=== PATIENT | female | born 1950 | race Caucasian/White ===

== ENCOUNTER 2019-07-03 17:45 | Inpatient (IN) ==
[2019-07-03] MEDS ORDERED: NORVASC PO ONE (19:23)
[2019-07-03] MEDS ORDERED: APRESOLINE IV PRN (19:25)
[2019-07-03] MEDS ORDERED: ZOFRAN IV PRN (19:26)
[2019-07-03] MEDS ORDERED: DESYREL PO PRN (19:26)
[2019-07-03 19:32] LABS: BASO# 0.02 X1000 (0.0-0.2); BASO% 0.2 % (0.0-0.8); EOS# 0.21 X1000 (0.0-0.7); EOS% 1.8 % (0.0-10.0); HEMATOCRIT 50.6 % (37.0-47.0); IMM GRAN# 0.07 X1000 (0.0-0.04); IMM GRAN% 0.6 % (0.0-0.5); LYMPH# 2.07 X1000 (1.2-3.4); LYMPH% 17.3 % (20.5-51.1); MCH 30.5 PG (27-31); MCHC 33.6 g/dL (33-37); MCV 90.7 FL (81-99); MONO# 0.77 X1000 (0.11-0.59); MONO% 6.4 % (1.7-9.3); MPV 9.9 FL (7.4-10.4); NEUT# 8.81 X1000 (1.4-6.5); NEUT% 73.7 % (42.2-75.2); PLT 167 X1000 (130-400); RBC 5.58 XMIL (4.2-5.4); RDW 13.5 % (11.5-14.5); WBC 11.95 X1000 (4.8-10.8)
[2019-07-03] MEDS: TYLENOL PO PRN (19:38)
[2019-07-03] MEDS: SOLU-MEDROL IV SCH (19:39)
[2019-07-03] MEDS: ROCEPHIN 1 GM in NS 50 ML IV SCH (19:39)
[2019-07-03 20:02] LABS: ALB/GLOB RATIO 1.1; ALBUMIN 3.7 g/dL (3.5-5.0); CREATININE 1.1 mg/dL (0.5-0.9); TOTAL BILIRUBIN 0.41 mg/dL (0.20-1.00); TOTAL PROTEIN 7.1 g/dL (6.3-8.3)
--- NOTE | 2019-07-03 20:20 | HISTORY AND PHYSICAL ---
DATE: 07/03/2019 CHIEF COMPLAINT: Shortness of breath. HISTORY OF PRESENT ILLNESS: This is a 68-year-old female with history of chronic obstructive pulmonary disease. She has been dealing with her COPD issues off and on for the last couple of months and not really been ever improved, per se. She most recently reports having 2 rounds of steroids. She has had 1 round of doxycycline and 1 round of Levaquin and an unknown, and has not improved. She has not finished her round of Levaquin. She was seen today in outpatient Urgent Care Clinic at [facility] by the nurse practitioner who felt that she was failing outpatient therapy and needed to be admitted directly. She does report some cough, occasional hemoptysis, no fevers, chills. PAST MEDICAL HISTORY: 1. COPD. 2. Hypertension. 3. Obstructive sleep apnea. PAST SURGICAL HISTORY: 1. She has had a partial hysterectomy. 2. She has had colon resection for diverticulosis. 3. She has had a cholecystectomy. ALLERGIES: No known drug allergies. SOCIAL HISTORY: Tobacco: She smokes about a pack to a pack and a half a day. She at least most likely has a 40 pack year history of smoking. It has kind of gotten worse since her in February. No alcohol. FAMILY HISTORY: Positive for diabetes and CAD. REVIEW OF SYSTEMS: No weight loss, appetite change. Positive pleuritic chest pain. The patient has no major complaints. Review of systems otherwise negative on a 10 point review of systems. PHYSICAL EXAMINATION: Vital signs: Blood pressure is 185/85, heart rate 75, respiratory rate 16, temperature 97.8 degrees. General: Well developed female in no acute distress, although she definitely does not feel well. Eyes: Pupils are equal, round, and reactive to light. Extraocular movements are intact. Ears, nose, throat: She has moist mucous membranes. Neck: Supple. Cardiovascular: Regular rate and rhythm. Pulmonary: She had diffuse rhonchi, occasional wheezing, and decreased air movement throughout. GI: Soft, nontender, and nondistended. Bowel sounds are positive. Neurological: Exam was nonfocal. Cranial nerves 2 through 12 were grossly intact. GI: Soft, nontender, nondistended. Bowel sounds were positive. Musculoskeletal: 4 out of 5 in all 4 extremities. LABORATORY DATA: I do not have any data today. X-rays were not sent with her. ASSESSMENT: This is a 68-year-old female with chronic obstructive pulmonary disease that has been refractory to outpatient treatments, admitted for persistent chronic obstructive pulmonary disease exacerbation. 1. Chronic obstructive pulmonary disease exacerbation. We will continue treatments. She does not seem particularly wheezy to me and she is not hypoxic. We may also have to entertain that this may be different. This may not be just bronchospasm. Perhaps she has another etiology. It could be cardiac, but I will treat her spasms with some steroids and breathing treatments, initiate some antibiotics, and follow closely. 2. Hypertension. She has uncontrolled hypertension. I have initiated Norvasc. She is on some medications, bisoprolol and Cozaar. They have not been confirmed. 3. Obstructive sleep apnea. She apparently does not use BiPAP, so we will continue to follow. 4. We will also do gastrointestinal and deep venous thrombosis prophylaxis. cc: MD Dr. Ilsa Hutton
[2019-07-03] MEDS: DUONEB (A & A) INH SCH (22:24)
--- NOTE | 2019-07-03 22:46 | EKG Report ---
Test Performed on : 07/03/2019 10:34:00 PM Test Reason : dyspnea Blood Pressure : / mmHG Vent. Rate : 070 BPM Atrial Rate : 070 BPM P-R Int : 176 ms QRS Dur : 082 ms QT Int : 424 ms P-R-T Axes : 057 -36 072 degrees QTc Int : 457 ms Normal sinus rhythm. Possible Left atrial enlargement Left axis deviation Abnormal ECG Confirmed by Surinder Cardoso MD ([id number]) on 07/07/2019 9:33:39 PM
[2019-07-04] MEDS: TYLENOL PO PRN ×2 (02:29→08:01)
[2019-07-04 02:48] LABS: URINE SOURCE CLEAN CATCH
[2019-07-04 03:05] LABS: BILIRUBIN URINE NEGATIVE (NEGATIVE); BLOOD URINE NEGATIVE (NEGATIVE); COLOR YELLOW; GLUCOSE URINE NEGATIVE (NEGATIVE); KETONE URINE NEGATIVE (NEGATIVE); LEUKOCYTES URINE NEGATIVE (NEGATIVE); NITRITE URINE NEGATIVE (NEGATIVE); PROTEIN URINE NEGATIVE (NEGATIVE); SP GRAVITY URINE 1.014; TURBIDITY URINE CLEAR (CLEAR); UROBILINOGEN URINE NORMAL (NORMAL)
[2019-07-04 03:07] LABS: UR EPITHELIAL CELLS <10 /HPF (<10); URINE BACTERIA NEGATIVE /HPF; URINE RBC <10 /HPF (<10); URINE WBC <10 /HPF (<10)
[2019-07-04] MEDS: DUONEB (A & A) INH SCH ×4 (03:33→22:33)
[2019-07-04] MEDS: NITROGLYCERIN SL PRN ×3 (04:52→12:00)
[2019-07-04] MEDS: LOVENOX SUBQ SCH (05:00)
[2019-07-04 06:26] LABS: BASO# 0.01 X1000 (0.0-0.2); BASO% 0.1 % (0.0-0.8); HEMATOCRIT 49.1 % (37.0-47.0); HEMOGLOBIN 16.4 g/dL (12.0-16.0); IMM GRAN# 0.03 X1000 (0.0-0.04); IMM GRAN% 0.3 % (0.0-0.5); LYMPH% 5.1 % (20.5-51.1); MCH 30.4 PG (27-31); MCHC 33.4 g/dL (33-37); MCV 90.9 FL (81-99); MONO# 0.08 X1000 (0.11-0.59); MONO% 0.8 % (1.7-9.3); MPV 9.6 FL (7.4-10.4); NEUT# 9.09 X1000 (1.4-6.5); NEUT% 93.7 % (42.2-75.2); PLT 163 X1000 (130-400); RDW 13.4 % (11.5-14.5); WBC 9.71 X1000 (4.8-10.8)
[2019-07-04 06:38] LABS: AGAP 15; BUN 18 mg/dL (8-22); CALCIUM 8.9 mg/dL (8.8-10.2); CHLORIDE 102 mmol/L (98-107); COSMO 283; CREATININE 0.9 mg/dL (0.5-0.9); ESTIMATED GFR > 60; GLUCOSE 195 mg/dL (70-104); POTASSIUM 4.1 mmol/L (3.5-5.1); SODIUM 138 mmol/L (136-145); TCO2 21 mmol/L (25-35)
[2019-07-04] MEDS: NORVASC PO SCH (08:01)
--- NOTE | 2019-07-04 08:03 | Diag Imaging Result Doc PS360 ---
EXAM: CHEST-2 VIEWS HISTORY: copd TECHNIQUE: Two views COMPARISON: 06/28/2019 FINDINGS: The lungs are hyperexpanded. No cardiomegaly. No pulmonary edema. No pleural effusions. No infiltrates. There is the appearance of a nodule in the upper outer left lung, however, one is not identified on the recent prior study. IMPRESSION: Emphysema. Possible nodule in the left upper lobe. Electronically signed by Jordan Oliveira 07/04/2019 8:01 AM
[2019-07-04] MEDS: SOLU-MEDROL IV SCH ×2 (08:04→20:40)
[2019-07-04] MEDS ORDERED: ZEBETA PO PRN (10:45)
[2019-07-04] MEDS: NS 1,000 ML IV SCH ×2 (11:15→20:37)
[2019-07-04 11:23] LABS: ALLEN TEST YES; BE -1.3 mmoll (-3.0-3.0); BLOOD TYPE ARTERIAL; HCO3-(ACT) 23.8 mmoll (20.0-26.0); O2(CT) 23.3 mL/dL (15.0-23.0); O2HB 94.2 % (95.0-99.0); PCO2(98.6) 36 mmHg (35-45); PO2(98.6) 79 mmHg (60-100); SAMPLE BLOOD; SAO2 97.8 % (95.0-100.0); THB 17.6 g/dL (11.5-17.4); pH(98.6) 7.41 (7.35-7.45)
[2019-07-04 11:24] LABS: MODALITY ROOM AIR
[2019-07-04] MEDS ORDERED: FIORICET PO ONE (11:40)
[2019-07-04] MEDS: NICODERM PATCH TD PRN (12:00)
--- NOTE | 2019-07-04 16:08 | PROGRESS NOTE ---
DATE: 07/04/2019 SUBJECTIVE: Patient has no major complaints. OBJECTIVE: Blood pressure is 149/53, heart rate 66, respiratory 16, temperature 97.6 degrees, 96% on room air.Cardiovascular: Regular rate and rhythm. Pulmonary: Bilateral breath sounds clear to auscultation. GI: Soft, nontender, nondistended. Bowel sounds are positive. She had occasional wheezing, diminished air throughout. White count 9, hemoglobin and hematocrit 16 and 49, platelets 163,000. Basic was okay. Chest x-ray showed COPD. PROBLEM LIST: 1. Acute chronic obstructive pulmonary disease exacerbation. Will continue breathing treatments, steroids, antibiotics. She seems to be doing a little bit better. 2. Erythrocytosis which is likely secondary. She is a smoker. Her carboxyhemoglobin was elevated. I think she probably has some secondary erythrocytosis, so we will continue to follow. 3. Hypertension. We will continue Norvasc, bisoprolol, Cozaar, and follow. 4. Tobacco abuse. We advised on cessation. 5. She has had chest pain. She has had 2 sets of cardiac enzymes which were negative. EKG has been negative. She does continue to monitor. Anticipate discharge next 1 to 2 days. cc: Aldo Love MD
--- NOTE | 2019-07-04 16:36 | EKG Report ---
Test Performed on : 07/04/2019 12:14:09 PM Test Reason : chest pain Blood Pressure : / mmHG Vent. Rate : 089 BPM Atrial Rate : 089 BPM P-R Int : 162 ms QRS Dur : 082 ms QT Int : 376 ms P-R-T Axes : 057 -12 076 degrees QTc Int : 457 ms Normal sinus rhythm. Possible Left atrial enlargement Borderline ECG Confirmed by Sumaya Gordon MD ([id number]) on 07/09/2019 6:40:02 AM
[2019-07-04] MEDS: FIORICET PO PRN (17:07)
[2019-07-04] MEDS: ROCEPHIN 1 GM in NS 50 ML IV SCH (20:29)
[2019-07-04] MEDS: CRESTOR PO SCH (20:39)
[2019-07-04] MEDS: ASPIRIN PO SCH (20:40)
[2019-07-04] MEDS: DESYREL PO SCH (20:42)
[2019-07-04] MEDS: PULMICORT FLEXHALER INH SCH (22:33)
[2019-07-05] MEDS: FIORICET PO PRN ×5 (00:17→17:34)
[2019-07-05] MEDS: DUONEB (A & A) INH SCH ×3 (03:04→16:22)
[2019-07-05 05:23] LABS: BASO# 0.01 X1000 (0.0-0.2); HEMATOCRIT 45.9 % (37.0-47.0); HEMOGLOBIN 15.1 g/dL (12.0-16.0); IMM GRAN# 0.06 X1000 (0.0-0.04); IMM GRAN% 0.3 % (0.0-0.5); LYMPH# 0.84 X1000 (1.2-3.4); LYMPH% 3.8 % (20.5-51.1); MCH 30.5 PG (27-31); MCHC 32.9 g/dL (33-37); MCV 92.7 FL (81-99); MONO# 0.82 X1000 (0.11-0.59); MONO% 3.7 % (1.7-9.3); MPV 9.6 FL (7.4-10.4); NEUT% 92.2 % (42.2-75.2); PLT 174 X1000 (130-400); RBC 4.95 XMIL (4.2-5.4); RDW 13.8 % (11.5-14.5); WBC 22.13 X1000 (4.8-10.8)
[2019-07-05] MEDS: LOVENOX SUBQ SCH (06:20)
[2019-07-05] MEDS: PRILOSEC PO SCH (06:20)
[2019-07-05] MEDS: NS 1,000 ML IV SCH ×2 (07:32→21:15)
[2019-07-05 09:06] LABS: BANDS 4 % (0-1); LYMPHS 6 % (21-51); MONO 4 % (1-9); SEGS 86 % (42-75)
[2019-07-05] MEDS: PULMICORT FLEXHALER INH SCH ×2 (09:12→19:04)
[2019-07-05] MEDS: COZAAR PO SCH (09:27)
[2019-07-05] MEDS: NORVASC PO SCH (09:27)
[2019-07-05] MEDS: SOLU-MEDROL IV SCH (09:27)
[2019-07-05] MEDS: TYLENOL PO PRN (16:05)
[2019-07-05] MEDS: NICODERM PATCH TD PRN (16:05)
--- NOTE | 2019-07-05 17:23 | PROGRESS NOTE ---
DATE: 07/05/2019 SUBJECTIVE: 1. The patient is complaining of chest pain this morning. EKGs and cardiac enzymes have been negative. I am not sure if this is pleuritic, but I think we will pursue noninvasive imaging and follow. I guess we will get an echo as well. 2. Chronic obstructive pulmonary disease exacerbation. We will continue to follow closely. Overall from my standpoint, she seems to be better, although, she still gets short of breath with exertion. 3. Hypertension. Continue her regular medications. 4. Disposition pending her clinical status. She is really not on any antidepressants. 5. Possible depression and situational disorder. She lost her last year. She has been smoking more extensively and it she is also living with her mom. Her children are not very helpful in her life, so I may start some Lexapro or Celexa to see if we can try to make her feel a little bit better. DISPOSITION: Pending her clinical status. cc: Aldo Love MD
--- NOTE | 2019-07-05 17:28 | EKG Report ---
Test Performed on : 07/05/2019 5:13:57 PM Test Reason : dyspnea Blood Pressure : / mmHG Vent. Rate : 088 BPM Atrial Rate : 088 BPM P-R Int : 156 ms QRS Dur : 084 ms QT Int : 378 ms P-R-T Axes : 055 -14 069 degrees QTc Int : 457 ms Normal sinus rhythm. Possible Left atrial enlargement Nonspecific ST abnormality Abnormal ECG When compared with ECG of July 04, 2019- No significant change was found Confirmed by Surinder Cardoso MD ([id number]) on 07/07/2019 9:45:51 PM
[2019-07-05] MEDS: NITROGLYCERIN SL PRN (17:35)
[2019-07-05] MEDS ORDERED: G.I. COCKTAIL PO ONE (17:40)
[2019-07-05] MEDS: MORPHINE IV PRN (17:49)
[2019-07-05] MEDS: NITROGLYCERIN TOP SCH (17:49)
[2019-07-05] MEDS ORDERED: SOLU-MEDROL IV SCH (21:00)
[2019-07-05] MEDS: ROCEPHIN 1 GM in NS 50 ML IV SCH (21:14)
[2019-07-05] MEDS: CRESTOR PO SCH (21:21)
[2019-07-05] MEDS: DESYREL PO SCH (21:21)
[2019-07-05] MEDS: ASPIRIN PO SCH (21:21)
[2019-07-06] MEDS: NITROGLYCERIN TOP SCH ×2 (00:43→06:08)
[2019-07-06] MEDS: DUONEB (A & A) INH SCH ×4 (03:01→22:48)
[2019-07-06] MEDS: MORPHINE IV PRN ×4 (04:14→22:37)
[2019-07-06] MEDS: NITROGLYCERIN SL PRN ×2 (04:50→04:57)
[2019-07-06] MEDS: NS 1,000 ML IV SCH ×2 (05:51→11:03)
[2019-07-06] MEDS: CELEXA PO SCH ×2 (05:56→20:17)
[2019-07-06 05:58] LABS: EOS# 0.02 X1000 (0.0-0.7); EOS% 0.1 % (0.0-10.0); HEMATOCRIT 44.8 % (37.0-47.0); HEMOGLOBIN 14.4 g/dL (12.0-16.0); IMM GRAN# 0.07 X1000 (0.0-0.04); IMM GRAN% 0.4 % (0.0-0.5); LYMPH# 0.92 X1000 (1.2-3.4); LYMPH% 4.9 % (20.5-51.1); MCH 30.3 PG (27-31); MCHC 32.1 g/dL (33-37); MCV 94.1 FL (81-99); MONO# 0.87 X1000 (0.11-0.59); MONO% 4.6 % (1.7-9.3); MPV 9.7 FL (7.4-10.4); NEUT# 17.02 X1000 (1.4-6.5); PLT 194 X1000 (130-400); RBC 4.76 XMIL (4.2-5.4); RDW 14.2 % (11.5-14.5)
[2019-07-06] MEDS: PRILOSEC PO SCH (06:01)
[2019-07-06] MEDS: LOVENOX SUBQ SCH (06:08)
[2019-07-06 06:12] LABS: AGAP 9; BUN 17 mg/dL (8-22); CALCIUM 8.9 mg/dL (8.8-10.2); CHLORIDE 107 mmol/L (98-107); COSMO 285; CREATININE 0.9 mg/dL (0.5-0.9); ESTIMATED GFR > 60; GLUCOSE 170 mg/dL (70-104); POTASSIUM 4.6 mmol/L (3.5-5.1); SODIUM 140 mmol/L (136-145); TCO2 24 mmol/L (25-35)
[2019-07-06] MEDS ORDERED: DOBUTAMINE 250 MG/D5W 250 MG/250 ML IV.SOLN ONE (08:27)
[2019-07-06] MEDS ORDERED: NS 500 ML ONE (08:28)
[2019-07-06 08:37] LABS: ANISOCYTOSIS 1+; LYMPHS 5 % (21-51); MONO 6 % (1-9); SEGS 89 % (42-75)
--- NOTE | 2019-07-06 09:19 | EKG Report ---
Test Performed on : 07/04/2019 04:44:01 AM Test Reason : No order in [place] Blood Pressure : / mmHG Vent. Rate : 070 BPM Atrial Rate : 070 BPM P-R Int : 164 ms QRS Dur : 078 ms QT Int : 432 ms P-R-T Axes : 061 -19 076 degrees QTc Int : 466 ms Normal sinus rhythm. Possible Left atrial enlargement Borderline ECG When compared with ECG of 03-JUL-2019 22:34, (Unconfirmed) No significant change was found Confirmed by Surinder Cardoso MD ([id number]) on 07/07/2019 9:33:55 PM
[2019-07-06] MEDS ORDERED: LOPRESSOR ONE (09:32)
[2019-07-06] MEDS ORDERED: ATROPINE SYRINGE ONE (09:33)
[2019-07-06] MEDS: PULMICORT FLEXHALER INH SCH ×2 (11:18→22:49)
--- NOTE | 2019-07-06 15:24 | PROGRESS NOTE ---
DATE: 07/06/2019 SUBJECTIVE: The patient has no major complaints except this intermittent chest pain, worse. OBJECTIVE: Blood pressure is 150/74, heart rate 73, respiratory rate 18, temperature 97.6 degrees, 99% on 2 L. Cardiovascular: Regular rate and rhythm. Pulmonary: Bilateral breath sounds clear to auscultation. GI: Soft, nontender, nondistended. Bowel sounds were positive. White count 18, hemoglobin and hematocrit 14 and 44, platelets 194,000. Basic was normal. PROBLEM LIST: 1. Chest pain, which is atypical. We have done serial enzymes and they were negative. EKGs have been negative. I am really not entirely sure what is inducing this. Myocardial perfusion scan is pending. Echocardiogram is pending. 2. Chronic obstructive pulmonary disease exacerbation. I think that is pretty much resolved. We will continue treatment. Probably will be switched to oral steroids. 3. Hypertension. Adjust her medicines accordingly. DISPOSITION: If her testing is negative, I am going to see about trying to get her out today. cc: Aldo Love MD
[2019-07-06] MEDS: COZAAR PO SCH (15:54)
[2019-07-06] MEDS: NORVASC PO SCH (15:55)
--- NOTE | 2019-07-06 16:47 | Diag Imaging Result Document ---
PROCEDURE NAME: MYOCARDIAL PERF SCAN, STR/REST - 07/06/2019 SUMMARY: The patient was administered 12.1 mCi of technetium 99-m sestamibi after which resting cardiac images were obtained. The patient was subsequently stressed utilizing a dobutamine protocol with stepwise increase in dobutamine infusion to a maximum of 30 mcg/kg per minute. After which, patient was also given atropine 0.3 mg intravenously to achieve target heart rate. With dobutamine, the heart rate increased from 74 beats per minute to 144 beats per minute, representing 94% of maximal age predicted heart rate. The blood pressure increased to 153/72 to 230/116. With dobutamine infusion and after atropine administration, the patient reported severe chest pain radiating to the back. The patient was administered radiopharmaceutical agent at peak heart rate. Dobutamine infusion was discontinued and patient was subsequently administered metoprolol 2 mg intravenously as well as sublingual nitroglycerin 0.4 mg. Chest discomfort improved. Baseline ECG demonstrated normal sinus rhythm, left axis deviation, and nonspecific T-wave abnormality. Delayed precordial R-wave progression demonstrated. At maximal pharmacologic stress, the patient manifests approximately 0.[address]-segment sagging in the lateral precordial leads which slowly returned to baseline. SPECT images were reconstructed in the short, horizontal long, and vertical long axis. Review of these images demonstrated a small area of mildly diminished activity in the mid anterior wall, left ventricle on stress images which appears similar on resting images. No significant reversibility is evident. Gated images demonstrate a calculated left ventricular ejection fraction of 74% with symmetrical wall motion/thickening. CONCLUSIONS: 1. Adequate response to dobutamine. Target heart rate achieved. 2. Clinically the patient reported severe chest pain radiating to the back with dobutamine, which resolved with cessation of dobutamine, IV metoprolol, and sublingual nitroglycerin. 3. Electrocardiographic changes observed are nonspecific. 4. Dobutamine sestamibi images demonstrate small fixed area of mildly diminished activity in the mid anterior wall with corresponding preserved regional wall motion most consistent with soft tissue attenuation artifact/breast artifact. There is no convincing scintigraphic evidence of inducible myocardial ischemia. Normal left ventricular systolic function demonstrated. cc: MD Aldo Chi MD
[2019-07-06] MEDS: CRESTOR PO SCH (20:16)
[2019-07-06] MEDS: DESYREL PO SCH (20:17)
[2019-07-06] MEDS: ASPIRIN PO SCH (20:17)
[2019-07-06] MEDS: ROCEPHIN 1 GM in NS 50 ML IV SCH (20:18)
--- NOTE | 2019-07-06 21:31 | ECHO REPORT ---
ORDER DATE: 07/06/2019 MEASUREMENTS: Septal thickness 1.0, left ventricular internal end-diastole 4.0, posterior wall thickness 1.0, left ventricular internal diameter end-systole 1.9, left atrium 3.3. SUMMARY: 1. Technically difficult study due to limited acoustic window quality. 2. Aortic valve is without evidence of structural abnormality and appears to open adequately on 2- dimensional images. The peak gradient across the aortic valve is less than 10 mmHg. Mitral and tricuspid valves are without gross structural abnormality with trace mitral regurgitation and trace tricuspid regurgitation. Pulmonic valve is not well demonstrated. Estimated systolic PA pressure by Doppler is 40 mmHg, suggesting mild pulmonary hypertension. Aortic root is normal in size. 3. Normal left ventricular dimensions demonstrated. The estimated left ventricular ejection fraction appears to be at least 70%. No regional wall motion abnormality can be appreciated. Doppler suggests grade 2 left ventricular diastolic dysfunction with pseudonormalization of mitral inflow Doppler. Left atrium is upper normal in size. The right atrium and right ventricle are grossly normal in size with grossly preserved right ventricular systolic function. 4. No pericardial effusion. 5. Appearance of inferior vena cava suggests normal central venous pressure. cc: MD Aldo Chi MD
[2019-07-07] MEDS: MORPHINE IV PRN ×2 (03:22→13:57)
[2019-07-07] MEDS: DUONEB (A & A) INH SCH ×4 (05:08→22:10)
[2019-07-07] MEDS: LOVENOX SUBQ SCH (06:03)
[2019-07-07] MEDS: PRILOSEC PO SCH (06:04)
[2019-07-07] MEDS: PULMICORT FLEXHALER INH SCH ×2 (07:54→22:10)
[2019-07-07] MEDS ORDERED: SOLU-MEDROL IV SCH (09:00)
[2019-07-07] MEDS: NORVASC PO SCH (09:44)
[2019-07-07] MEDS: COZAAR PO SCH (09:44)
[2019-07-07] MEDS: PREDNISONE PO SCH (09:44)
[2019-07-07] MEDS ORDERED: PRILOSEC PO ONE (17:22)
--- NOTE | 2019-07-07 17:49 | PROGRESS NOTE ---
DATE: 07/07/2019 SUBJECTIVE: Patient has no major complaints. OBJECTIVE: Blood pressure is 167/80, heart rate 81, respiratory 16, temperature 97.7 degrees, 97% on 2 L.Cardiovascular: Regular rate and rhythm. Pulmonary: Bilateral breath sounds clear to auscultation. Her lungs are clear. I do not appreciate any wheezing. GI: Soft, nontender, nondistended. Bowel sounds are positive. LABORATORY DATA: White count is 18, that was yesterday's data. No new data today. Myocardial perfusion scan was negative. Echo was normal, possibly some diastolic dysfunction. PROBLEM LIST: 1. Atypical chest pain. She has had a cardiac workup that is negative. Her D-dimer is negative. I guess we will pursue CTA. She is requesting/demanding a GI consultation. She sees Dr. Pace. Feel like there is a lot of barriers to discharge with a fairly negative workup, but in any case. 2. Chronic obstructive pulmonary disease exacerbation. She is on prednisone. She seems to be doing okay. I will add some Carafate today. DISPOSITION: Pending her clinical status. cc: Aldo Love MD
[2019-07-07] MEDS: ROCEPHIN 1 GM in NS 50 ML IV SCH (18:38)
--- NOTE | 2019-07-07 19:52 | Diag Imaging Result Doc PS360 ---
EXAM: CT ANGIOGRM PULMONARY ARTERIES 07/07/2019 HISTORY: chest pain TECHNIQUE: This exam was performed using automated exposure control, adjustment of mA or kV according to patient size, and/or use of iterative reconstruction technique. COMMENT: 3-D MIPS were performed. There are no filling defects in the pulmonary arteries. The aorta is normal in caliber and there is no evidence of dissection. There is minimal atelectasis in the posterior lower lobes particularly on the right. There are some patchy groundglass opacities in the left upper lobe and to a lesser extent the right upper lobe. There is a denser opacity in the right apex on image 28. This was present at the time the previous study. The groundglass opacities were not present previously although there were denser opacities at the time the previous study in the inferior lingula and middle lobe. The regional skeleton appears to be intact. There is no evidence of acute disease in the slice portion of the abdomen. IMPRESSION: No evidence of pulmonary emboli. Minimal pneumonitis and chronic bronchiolitis obliterans. Electronically signed by Mirza Acosta 07/07/2019 7:50 PM
[2019-07-07] MEDS: CARAFATE LIQUID PO SCH (20:19)
[2019-07-07] MEDS: CELEXA PO SCH (20:19)
[2019-07-07] MEDS: CRESTOR PO SCH (20:19)
[2019-07-07] MEDS: DESYREL PO SCH (20:19)
[2019-07-07] MEDS: ASPIRIN PO SCH (20:20)
[2019-07-08] MEDS: CARAFATE LIQUID PO SCH ×3 (02:10→13:30)
[2019-07-08] MEDS: DUONEB (A & A) INH SCH ×2 (05:12→10:39)
[2019-07-08 05:48] LABS: EOS# 0.18 X1000 (0.0-0.7); EOS% 1.9 % (0.0-10.0); HEMOGLOBIN 14.3 g/dL (12.0-16.0); IMM GRAN# 0.03 X1000 (0.0-0.04); IMM GRAN% 0.3 % (0.0-0.5); LYMPH# 1.43 X1000 (1.2-3.4); LYMPH% 14.9 % (20.5-51.1); MCH 30.8 PG (27-31); MCHC 32.5 g/dL (33-37); MCV 94.6 FL (81-99); MONO# 0.85 X1000 (0.11-0.59); MONO% 8.9 % (1.7-9.3); MPV 9.4 FL (7.4-10.4); NEUT# 7.11 X1000 (1.4-6.5); PLT 167 X1000 (130-400); RBC 4.65 XMIL (4.2-5.4); RDW 14.3 % (11.5-14.5)
[2019-07-08] MEDS: LOVENOX SUBQ SCH (06:15)
[2019-07-08 06:27] LABS: AGAP 11; BUN 19 mg/dL (8-22); CALCIUM 8.5 mg/dL (8.8-10.2); CHLORIDE 101 mmol/L (98-107); COSMO 288; CREATININE 0.7 mg/dL (0.5-0.9); ESTIMATED GFR > 60; GLUCOSE 141 mg/dL (70-104); SODIUM 142 mmol/L (136-145); TCO2 30 mmol/L (25-35)
[2019-07-08] MEDS ORDERED: PRILOSEC PO SCH (07:00)
[2019-07-08] MEDS: MORPHINE IV PRN ×2 (07:42→15:33)
[2019-07-08] MEDS: NORVASC PO SCH (10:20)
[2019-07-08] MEDS: PREDNISONE PO SCH (10:20)
[2019-07-08] MEDS: COZAAR PO SCH (10:20)
[2019-07-08] MEDS: PULMICORT FLEXHALER INH SCH (10:39)
--- NOTE | 2019-07-08 13:52 | GASTROENTEROLOGY CONSULTATION ---
DATE: 07/08/2019 REASON FOR CONSULT: Chest pain and dyspepsia. HISTORY OF PRESENT ILLNESS: Ms. Sapp is a 68-year-old, female with a history of COPD, hypertension and hyperlipidemia, who currently smokes 1-1/2 packs of cigarettes on a daily basis and uses CPAP at night. The patient mentioned that she has been having sinus infection since the beginning of this year. She went to Dr. Rosenbaum and got some prednisone for her sinus infection but that did not give her relief, so she [facility] where they gave her 2 shots of antibiotics. She was sent home with prednisone and some antibiotics but that did not relieve her from any of the sinus problems. She went to Med[facility]urg on Saturday, complaining of chest pain and an increase in blood pressure. She was asked to come to the ER. The patient has been in the hospital since 07/03/2019. Currently, she says that her chest pain is better. She has been sleeping better. She has no indigestion problems. She is able to tolerate her diet well. The patient did mention that she has been going through a lot of stress because her in February. Since then she is in a lot of stress with anxiety and depression problems. She does have constipation for which she takes MiraLAX and whenever she has indigestion, she takes antacids to relieve her indigestion. The patient did have a colon resection in 2010 due to her diverticulitis. She currently has denied any chest pain, nausea, vomiting, or abdominal pain. PAST MEDICAL HISTORY: Includes hypertension, COPD, hyperlipidemia, diverticulitis, status post colon resection, chest pain, arthritis, anxiety and depression. PAST SURGICAL HISTORY: A colon resection in 2010, hernia repair, cholecystectomy, partial hysterectomy, tonsillectomy, and hemorrhoidectomy. ALLERGIES: No known drug allergies. SOCIAL HISTORY: She is a . She smokes 1-1/2 pack of cigarettes per day. Has 2 kids. She has denied any alcohol or illicit drug use. FAMILY HISTORY: Positive for heart disease. HOME MEDICATIONS: Crestor 40 mg p.o. at bedtime, bisoprolol fumarate 5 mg 1 tablet at bedtime, albuterol sulfate 2 puffs inhalation every 4 to 6 hours as needed, losartan 50 mg p.o. daily, Trazodone 50 mg p.o. 1 tablet at bedtime, aspirin 81 mg at bedtime, omeprazole 20 mg daily, and budesonide 180 mcg inhalation as needed. REVIEW OF SYSTEMS: As per HPI. Otherwise, 12 point review of system is negative. PHYSICAL EXAMINATION: Temperature 97.5, pulse 86, respirations 20, blood pressure 125/78, oxygen saturation 94% on 2 L nasal cannula. The patient's weight is 173 pounds. BMI is 28.8 kg/m2. General: She is alert, oriented x3. Answering questions appropriately and in no acute distress. HEENT: Pale conjunctivae. No icterus. PERRL. Neck: Supple. Lungs: Clear to auscultation. Cardiovascular: Regular rate and rhythm. Abdomen: Soft, nontender, nondistended. Active bowel sounds heard in all 4 quadrants. Extremities: No clubbing, no cyanosis, no edema. Pedal pulses 2+ present bilaterally. Neurological: Alert and oriented x3. Nonfocal. Cranial nerves 2-12 grossly intact. LABS: WBCs 9.60, RBCs 4.65, hemoglobin 14.3, hematocrit is 44.0, platelet count is 167,000. Sodium 142, potassium 4.0, chloride 101, carbon dioxide 30, anion gap 11, BUN 19, creatinine 0.7, glucose 141, calcium 8.5. The patient's echocardiogram Doppler has shown that her ejection fraction is 70%. Her myocardial perfusion has shown her ejection fraction of 74%. Pulmonary arteriogram has shown no evidence of pulmonary emboli. Minimal pneumonitis and chronic bronchiolitis obliterans. IMPRESSION AND PLAN 1. Chest pain. 2. Dyspepsia. 4. Nausea and vomiting. 5. COPD. 6. Hypertension. PLAN: Ms. Sapp is a 68-year-old, female with a history of hypertension and COPD. GI has been consulted for her chest pain and dyspepsia. The patient currently has denied any of the symptoms of chest pain, indigestion, acid reflux, abdominal pain, nausea, or vomiting. The patient is on a heart healthy diet and is able to tolerate her diet well. We have discussed with the patient that since she has no symptoms of heartburn, abdominal pain, nausea, and vomiting, we will follow her up in 3 to 4 weeks as an outpatient and plan do an outpatient endoscopy. We will continue patient with PPIs daily. We will follow her up as an outpatient. For now, we will sign off. Please call us for any further questions or concerns. This plan was discussed with Dr. Bowles. Thank you for your consult. Please call us for any further questions or concerns. Dictated by CORETTA Benavides for Elver Bowles MD Physician Attestation I have seen and examined the patient. I have discussed and reviewed the note by Suki HITCHCOCK and agree with findings and plan as documented. Her symptoms are likely GERD related vs anxiety. Recommend PPI and outpatient follow-up with GI. NICKID
[2019-07-08 16:01] VITALS: BP 163/79
--- NOTE | 2019-07-09 10:15 | DISCHARGE SUMMARY ---
ADMISSION DATE: 07/03/2019 DISCHARGE DATE: 07/08/2019 DISCHARGE DIAGNOSES: 1. Chronic obstructive pulmonary disease exacerbation, bronchitis, and chronic bronchiolitis obliterans. 2. Persistent tobacco abuse. 3. Gastroesophageal reflux disease, gastritis. CONSULTATIONS: Dr. Bowles, GI. HOSPITAL COURSE: Briefly, this is a 68-year-old female who has been dealing with issues with her breathing off and on for 2 months. She has had 2 rounds of antibiotics and 1 round of steroids. She was hypertensive. She was bronchospastic, although only mildly so. She was placed on antibiotics and given steroids. Chest x-ray was clear. She did develop some intermittent chest pain for which EKGs and cardiac enzymes were negative. Her echocardiogram showed an EF of 70% with some grade 2 left ventricular diastolic dysfunction but no major valvular abnormalities. Myocardial perfusion scan was also negative. She did have chest pain with dobutamine which we chose to use in the setting of bronchospasm, concern with adenosine or Lexiscan. There were no reversible defects. EF was intact. She still had chest pain. We went ahead and did a CTA. It was negative for PE but she did have some chronic bronchiolitis obliterans which may be why she is having these issues. We are going to do a prolonged course of antibiotics and have her follow up with pulmonary. I do not think she is seeing anybody there. GI was consulted because she has seen Dr. Blnaton and they felt that this may follow up and consider outpatient endoscopy. He recommended PPIs b.i.d., which we will continue. DISCHARGE MEDICATIONS: Norvasc 5, Pulmicort b.i.d., Celexa 20 daily. That was a new medication. She has lost her and having some issues associated with that. We will do a slow taper over a couple weeks and then antibiotics for 2 weeks. She is on ceftriaxone so I am going to use Omnicef and we will continue to follow. cc: Aldo Love MD
--- NOTE | 2019-07-10 14:44 | VASCULAR LAB ---
DATE: 07/06/2019 PROCEDURE: Bilateral lower extremity segmental Doppler exam. SPARKER AND PATCHER: Davey. REQUESTING PHYSICIAN: Dr. Love. INDICATION: Peripheral vascular disease. EXAM FOR COMPARISON: 01/18/2017. FINDINGS: Brachial on the right is 178, on the left 179. High thigh on the right is 167, on the left 180. Low thigh on the right is 158, on the left 163. Calf on the right is 145, on the left 128. DP on the right is 120, on the left 116. PT on the right is 128, on the left 129. Toe pressure on the right is 102, on the left 97. TAMIKA on the right is 0.72, on the left 0.72. TBI on the right is 0.57, on the left 0.54. There is blunting of the waveforms and suppression of the TAMIKA bilaterally, that would correlate to a moderate degree of atherosclerotic changes. This becomes more evident at the distal thigh and calf level which would suggest an SFA and popliteal disease. This is worse when compared to the 2017 study. IMPRESSION: Moderate degree of atherosclerotic changes noted in bilateral lower extremities. cc: MD Aldo Nguyen MD
== END 2019-07-08 18:32 | disposition home or self-care (01) | DRG 192 ==
LOC: DIRADM 17:45 → EDIPHOLD 18:24 → 1N 20:56
PROVIDERS: ATTEND Internal Medicine